=== PATIENT | female | born 1980 | race Caucasian/White ===

== ENCOUNTER 2018-12-01 12:58 | Emergency (ER) | payer OTHER ==
[~2018-12-01] VITALS: Ht 154.9 cm; Wt 99.8 kg
[2018-12-01 13:00] VITALS: BP 160/102
--- NOTE | 2018-12-01 13:00 | NUR ---
PATIENT AMBULATED TO ER BED 10.
--- NOTE | 2018-12-01 13:05 | NUR ---
38Y/F BIB SELF WITH C/O MID TO LOW BACK X 2 DAYS , DENIES TX/INJURY BUT REPORTS IT MAY BE WORK RELATED. TOOK MOTRIN AND TYLENOL WITH NO RELIEF, PT IS AAOX4, VSS AT THIS TIME, BED DOWN, BED RAIL UP X 1, ER MD AWARE AND NOTIFIED OF PT STATUS/ PMH:HTN ALLERGIES: CODEINE
[2018-12-01] MEDS ORDERED: KETOROLAC 30 MG/ML VIAL IM ONE (13:50)
[2018-12-01 14:15] VITALS: BP 140/88
--- NOTE | 2018-12-01 14:15 | NUR ---
Patient discharged with v/s stable. Written and verbal after care instructions given and explained. Patient alert, oriented and verbalized understanding of instructions. Ambulatory with steady gait. All questions addressed prior to discharge. ID band removed. Patient advised to follow up with PMD. Rx of VALIUM AND IBUPROFEN given. Patient educated on indication of medication including possible reaction and side effects. Opportunity to ask questions provided and answered.
== END 2018-12-01 14:15 | disposition home or self-care (01) ==
LOC: MED 12:58
DX: M54.5 Low back pain (principal); I10 Essential (primary) hypertension; Z88.5 Allergy status to narcotic agent
CPT/HCPCS: 81025; 96372; 99283; J1885; 81002